=== PATIENT | male | born 1980 | race Caucasian/White ===

== ENCOUNTER 2016-11-19 22:52 | Emergency (ER) | payer MEDICAID ==
[2016-11-19] MEDS ORDERED: KETOROLAC 60 MG/2 ML VIAL IM STA (23:12)
--- NOTE | 2016-11-19 23:18 | Emergency Department Record ---
History of Present Illness - General Chief Complaint: Back Pain/Injury Stated Complaint: BACK,SIDE PAIN,VOMITING,DIARRHEA Time Seen by Provider: 11/19/16 23:04 Source: Patient Mode of Arrival: Ambulatory Limitations: No limitations - History of Present Illness Initial Comments: 35 yo male presents to ED with a CC of right sided chest/flank pain that began last night while at rest. Patient denies injury or trauma, denies difficultly breathing or pain with deep inspiration, and denies pain with trunk movement. Patient denies abdominal pain but does report one episode of vomiting JPTA. Patient denies previous history of DVT, calf pain, or PE. Patient denies health problems at his baseline. Patient reports similar symptoms in September, unknown cause. MD Complaint: Back pain Onset/Timin -: Days(s) Similar Symptoms Previously: Yes Place: Home Severity: Moderate Severity scale (1-10): 8 Consistency: Constant Improves With: None Worsens With: None Context: Unknown Associated Symptoms: Chest pain, Nausea/vomiting (x 1) Treatments Prior to Arrival: Acetaminophen Treatment Prior to Arrival Comment:: 2000mg - Related Data Previous Rx's Medication Instructions Recorded Naproxen [Naprosyn] 500 mg PO Q12H #20 tab. 11/20/16 Allergies Allergy/AdvReac Type Severity Reaction Status Date / Time No Known Drug Allergies Allergy Verified 09/28/16 03:00 Travel Screening - Travel/Exposure Within Last 30 Days Have you traveled within the last 30 days?: No - Travel/Exposure Within Last Year Have you traveled outside the [place] in the last year?: No - Additonal Travel Details Have you been exposed to anyone with a communicable illness?: No - Travel Symptoms Symptom Screening: None Review of Systems Constitutional: Denies: Chills, Fever, Malaise, Night sweats Eyes: Denies: Eye discharge, Eye pain ENT: Denies: Congestion Respiratory: Denies: Cough, Dyspnea Cardiovascular: Reports: Chest pain. Denies: Dyspnea on exertion, Palpitations , Paroxysmal nocturnal dyspnea Endocrine: Denies: Fatigue, Heat or cold intolerance Gastrointestinal: Reports: Vomiting (x 1). Denies: Abdominal pain Genitourinary: Denies: Hematuria, Incontinence, Retention Musculoskeletal: Reports: Back pain. Denies: Arthralgia, Gout, Joint swelling Skin: Reports: Rash (right lateral flank region). Denies: Bruising, Change in color, Change in hair/nails Neurological: Denies: Abnormal gait, Confusion, Headache, Seizure Psychiatric: Denies: Anxiety Hematological/Lymphatic: Denies: Anemia, Blood Clots Past Medical History - SOCIAL HISTORY Smoking Status: Current every day smoker Alcohol Use: None Drug Use: None - RESPIRATORY Hx Respiratory Disorders: No - CARDIOVASCULAR Hx Cardio Disorders: No - NEURO Hx Neuro Disorders: No - GI Hx GI Disorders: No - Hx Genitourinary Disorders: No - ENDOCRINE Hx Endocrine Disorders: No - MUSCULOSKELETAL Hx Musculoskeletal Disorders: No - PSYCH Hx Psych Problems: No Comment:: Pt staeas PTSD no meds. - HEMATOLOGY/ONCOLOGY Hx Hematology/Oncology Disorders: No Family Medical History Any Significant Family History?: No Physical Exam - General General Appearance: Alert, Oriented x3, Cooperative, No acute distress Limitations: No limitations - Head Head exam: Atraumatic, Normocephalic, Normal inspection Head exam detail: negative: Abrasion, Contusion, Irene's sign, General tenderness, Hematoma, Laceration - Eye Eye exam: Normal appearance. negative: Conjunctival injection, Periorbital swelling, Periorbital tenderness, Scleral icterus - ENT Ear exam: negative: Auricular hematoma, Auricular trauma Nasal Exam: negative: Active bleeding, Discharge, Dried blood, Foreign body Mouth exam: negative: Drooling, Laceration, Muffled voice, Tongue elevation - Neck Neck exam: Normal inspection. negative: Meningismus, Tenderness - Respiratory Respiratory exam: Normal lung sounds bilaterally. negative: Respiratory distress, Rhonchi, Stridor, Wheezes - Cardiovascular Cardiovascular Exam: Regular rate, Normal rhythm, Normal heart sounds - GI/Abdominal GI/Abdominal exam: Soft. negative: Distended, Pulsatile mass, Rebound, Rigid, Tenderness - Rectal Rectal exam: Deferred - exam: Deferred - Extremities Extremities exam: Normal inspection. negative: Calf tenderness, Pedal edema, Tenderness - Back Back exam: Reports: Normal inspection. Denies: CVA tenderness (R), CVA tenderness (L) - Neurological Neurological exam: Alert, Normal gait, Oriented X3 - Psychiatric Psychiatric exam: Normal affect, Normal mood - Skin Skin exam: Rash (right lateral flank, back). negative: Abrasion Type of lesion: Rash Distribution of rash: Thorax Description of rash: Erythematous, Macular Course Vital Signs 11/19/16 22:53 Temperature 97.8 F Pulse Rate 52 L Respiratory 16 Rate Blood Pressure 135/80 Pulse Ox 98 - Reevaluation(s) Reevaluation #1: 11/19/16 23:18 Patient seen and examined, pain over the lower right chest wall radiating around to his back. Rash noted on examination, reports this may be related to heating pad but is unsure, no vesicles are present on exam. ? Shingles vs. mild abrasion from heating pad. Patient is PERC negative on examination. Patient has no abdominal pain on examination, therefore cholecystitis does not appear likely. Symptoms do not appear cardiac in etiology and are similar to symptoms in September with a negative cardiac evaluation. Will obtain CXR, EKG, and UA to look for evidence of kidney stone as the etiology. Toradol given for pain symptoms. EKF: Sinus Bradycardia 42 Normal axis, normal intervals, No acute ST-T wave changes. EKG is unchanged from 09/28/16. 11/19/16 23:32 Reevaluation #2: 11/20/16 00:07 CXR: No acute process Patient reassessed following Toradol administration, reports that his pain symptoms are greatly improved. Awaiting UA to exclude blood (kidney stone). Reevaluation #3: 11/20/16 01:12 UA and UDS appear negative for blood or infection. Patient continues to report improvement in his pain symptoms. Rash does not appear to be consistent with shingles. Patient appears stable for discharge at this time with symptomatic treatment for his flank pain symptoms. Disposition Disposition: Discharge Clinical Impression: Chest wall pain Disposition: Home, Self-Care Condition: (2) Stable Instructions: Chest Wall Pain (ED) Additional Instructions: Return to ED if your symptoms worsen or if you have any concerns. Naprosyn as directed for your chest wall pain. Follow-up with your family doctor in 3-5 days as directed. Prescriptions: Naproxen [Naprosyn] 500 mg PO Q12H #20 tab.dr Forms: Patient Portal Access Time of Disposition: 01:15
[2016-11-20 01:05] LABS: URINE APPEARANCE CLEAR; URINE BILIRUBIN SMALL (NEGATIVE); URINE BLOOD NEGATIVE (NEGATIVE); URINE COLOR YELLOW; URINE GLUCOSE (UA) NEGATIVE (NEGATIVE); URINE KETONE 40 mg/dL (NEGATIVE); URINE LEUKOCYTE ESTERASE NEGATIVE (NEGATIVE); URINE NITRITE NEGATIVE (NEGATIVE); URINE PROTEIN TRACE (NEGATIVE); URINE UROBILINOGEN 0.2 E.U./dL (0.20 - 1.00)
[2016-11-20 01:10] LABS: AMPHETAMINE SCREEN URINE NOT DETECTED; BARBITURATE SCREEN URINE NOT DETECTED; BENZODIAZEPINE SCREEN URINE NOT DETECTED; COCAINE SCREEN URINE NOT DETECTED; METHADONE SCREEN URINE NOT DETECTED; METHAMPHETAMINE SCREEN NOT DETECTED; OPIATE SCREEN URINE NOT DETECTED; OXYCODONE SCREEN URINE NOT DETECTED; PHENCYCLIDINE SCREEN URINE NOT DETECTED; PROPOXYPHENE SCREEN URINE NOT DETECTED; THC SCREEN URINE NOT DETECTED; TRICYCLIC ANTIDEPRESSANT SCRN NOT DETECTED
--- NOTE | 2016-11-22 15:06 | RADIOLOGY REPORT ---
EXAM: CHEST, TWO VIEWS HISTORY: ACUTE GENERALIZED RIGHT CHEST PAIN. TECHNIQUE: Two views of the chest were obtained. Comparison: Chest x-ray 09/28/16. FINDINGS: The lungs are clear. The cardiomediastinal silhouette, diaphragm, and osseous structures are unremarkable for age. IMPRESSION: NEGATIVE CHEST EXAMINATION. JOB NUMBER: [id number] MTDD
== END 2016-11-20 01:24 | disposition home or self-care (01) ==
LOC: ER 22:52
DX: R07.89 Other chest pain (principal); R11.2 Nausea with vomiting, unspecified; R21 Rash and other nonspecific skin eruption; F17.210 Nicotine dependence, cigarettes, uncomplicated; Z79.899 Other long term (current) drug therapy
CPT/HCPCS: 99284 ×2; 96372; 81003; 71020; 93005; 93010; G0477; J1885

== ENCOUNTER 2016-11-24 22:17 | Emergency (ER) | payer MEDICAID ==
--- NOTE | 2016-11-24 22:36 | Emergency Department Record ---
History of Present Illness - General Chief complaint: Flank Pain Stated complaint: SIDE PAIN Time Seen by Provider: 11/24/16 22:29 Source: Patient Mode of Arrival: Ambulatory Limitations: No limitations - History of Present Illness Initial comments: 35 yo male returns to ED with a CC of right sided chest and back pain symptoms. Patient reports similar symptoms in September of last year, improved with symptomatic treatment following evaluation in the ED. Patient descibes his pain as an "ache", denies fevers, chills, cough, or recent illness. Patient history of PE/DVT. Onset/Timin -: Days(s) Location: Abdomen, Right flank Radiation: Chest Severity: Moderate Severity scale (1-10): 8 Quality: Other Consistency: Getting worse Improves with: None Worsens with: None Reports: Nausea/vomiting - Related Data Previous Rx's Medication Instructions Recorded Naproxen [Naprosyn] 500 mg PO Q12H #20 tab. 11/20/16 Allergies Allergy/AdvReac Type Severity Reaction Status Date / Time No Known Drug Allergies Allergy Verified 09/28/16 03:00 Travel Screening - Travel/Exposure Within Last 30 Days Have you traveled within the last 30 days?: No - Travel/Exposure Within Last Year Have you traveled outside the [place] in the last year?: No - Additonal Travel Details Have you been exposed to anyone with a communicable illness?: No - Travel Symptoms Symptom Screening: None Review of Systems Constitutional: Denies: Chills, Fever, Malaise, Night sweats Eyes: Denies: Eye discharge, Eye pain ENT: Denies: Congestion, Ear pain Respiratory: Denies: Cough, Dyspnea Cardiovascular: Reports: Chest pain. Denies: Dyspnea on exertion, Palpitations Endocrine: Denies: Fatigue, Heat or cold intolerance Gastrointestinal: Denies: Abdominal pain, Nausea, Vomiting Genitourinary: Denies: Hematuria, Incontinence, Retention Musculoskeletal: Reports: Back pain. Denies: Arthralgia, Gout, Joint swelling Skin: Denies: Bruising, Change in color Neurological: Denies: Abnormal gait, Confusion, Headache, Seizure Psychiatric: Denies: Anxiety Hematological/Lymphatic: Denies: Anemia, Blood Clots Past Medical History - SOCIAL HISTORY Smoking Status: Current every day smoker Alcohol Use: None Drug Use: None - RESPIRATORY Hx Respiratory Disorders: No - CARDIOVASCULAR Hx Cardio Disorders: No - NEURO Hx Neuro Disorders: No - GI Hx GI Disorders: No - Hx Genitourinary Disorders: No - ENDOCRINE Hx Endocrine Disorders: No - MUSCULOSKELETAL Hx Musculoskeletal Disorders: No - PSYCH Hx Psych Problems: No Comment:: Pt staeas PTSD no meds. - HEMATOLOGY/ONCOLOGY Hx Hematology/Oncology Disorders: No Family Medical History Any Significant Family History?: No Physical Exam - General General Appearance: Alert, Oriented x3, Cooperative, No acute distress Limitations: No limitations - Head Head exam: Atraumatic, Normocephalic, Normal inspection Head exam detail: negative: Abrasion, Contusion, Irene's sign, General tenderness, Hematoma, Laceration - Eye Eye exam: Normal appearance. negative: Conjunctival injection, Periorbital swelling, Periorbital tenderness, Scleral icterus - ENT Ear exam: negative: Auricular hematoma, Auricular trauma Nasal Exam: negative: Active bleeding, Discharge, Dried blood, Foreign body Mouth exam: negative: Drooling, Laceration, Tongue elevation - Neck Neck exam: Normal inspection. negative: Lymphadenopathy, Meningismus, Tenderness - Respiratory Respiratory exam: Normal lung sounds bilaterally. negative: Respiratory distress, Rhonchi, Stridor, Wheezes - Cardiovascular Cardiovascular Exam: Regular rate, Normal rhythm, Normal heart sounds - GI/Abdominal GI/Abdominal exam: Soft, Tenderness (mild TTP RUQ on examination, no rebound, guarding, or peritoneal signs are present.). negative: Rebound, Rigid - Rectal Rectal exam: Deferred - exam: Deferred - Extremities Extremities exam: Normal inspection. negative: Calf tenderness, Pedal edema, Tenderness - Back Back exam: Reports: Normal inspection. Denies: CVA tenderness (R), CVA tenderness (L), Paraspinal tenderness - Neurological Neurological exam: Alert, Normal gait, Oriented X3 - Psychiatric Psychiatric exam: Normal affect, Normal mood. negative: Anxious - Skin Skin exam: Normal color. negative: Abrasion Type of lesion: negative: abrasion Course Vital Signs 11/24/16 22:22 Temperature 98.7 F Pulse Rate [ 100 H Pulse Ox Probe] Respiratory 18 Rate Blood Pressure 122/81 [Left Arm] Pulse Ox 98 - Reevaluation(s) Reevaluation #1: 11/24/16 22:53 EKG: NSR 94 Normal axis, normal intervals No acute ST-T wave changes are present. Unchanged from 11/19/16. Reevaluation #2: 11/24/16 23:41 Labs reviewed, WBC 17.5, otherwise labs are grossly unremarkable for an acute process. Bedside US performed, there are gallstones present with GB wall thickening present. CT pending. Reevaluation #3: 11/24/16 23:57 CTA Chest: No PE, no acute chest pathology. Partial visualization of the gallbladder demonstrates fat stranding. Dr. Salcido paged for consultation. Reevaluation #4: 11/25/16 00:08 Case was discussed with Dr. Salcido, will transfer to [facility] for surgical evaluation. Invanz ordered to infuse prior to transfer. Medical Decision Making - Lab Data Result diagrams: 11/24/16 22:30 11/24/16 22:30 Disposition Disposition: Transfer Clinical Impression: Acute cholecystitis Disposition: Acute Care Hospital Transfer Transfer To: [facility] Reason For Transfer: Surgical consultation Accepting Physician: Loly Time Discussed w/Accepting Physician: 00:09 Condition: (2) Stable Forms: Patient Portal Access Time of Disposition: 00:09
[2016-11-24] MEDS: KETOROLAC 30 MG/ML VIAL IVP ONE (22:40)
[2016-11-24] MEDS: 0.9 % SODIUM CHLORIDE 1000ML 1,000 ML IV SCH (22:41)
[2016-11-24 23:03] LABS: BASO % 0.1 % (0-6); EOS % 2.3 % (0-6); HEMATOCRIT 47.6 % (42.0-52.0); LYMPH % 11.3 % (16-45); MEAN CELL VOLUME 85.9 fl (81-97); MEAN CORPUSCULAR HEMOGLOBIN 28.9 pg (27-33); MEAN CORPUSCULAR HGB CONC 33.6 g/dl (32-36); MEAN PLATELET VOLUME 10.2 fl (7.4-10.4); MONO % 8.3 % (0-9); PLATELET COUNT 225 K/uL (130-400); RED BLOOD COUNT 5.54 M/uL (4.40-5.70); RED CELL DISTRIBUTION WIDTH 13.4 % (11.5-14.5); WHITE BLOOD COUNT W/O DIFF 17.5 K/uL (4.2-12.2)
[2016-11-24 23:10] LABS: ALB/GLOB RATIO 1.5 (1.1-1.8); ALBUMIN 4.2 gm/dL (3.5-5.0); ALKALINE PHOSPHATASE 118 U/L (38-126); ALT/SGPT 58 U/L (21-72); ANION GAP 14.4 (7-16); AST/SGOT 36 U/L (17-59); BILIRUBIN,TOTAL 0.75 mg/dL (0.2-1.3); BLOOD UREA NITROGEN 11 mg/dL (9-20); CARBON DIOXIDE 23.6 mmol/L (22-30); CREATININE 1.2 mg/dL (0.66-1.25); EST GLOMERULAR FILTRATION RATE > 60 ml/min; GLUCOSE,RANDOM 108 mg/dL (70-110)
[2016-11-24 23:21] LABS: TROPONIN I < 0.012 ng/mL (0.00-0.034)
[2016-11-24 23:43] LABS: CKMB 0.2 ug/L (0-6)
[2016-11-25] MEDS: ERTAPENEM SODIUM 1 G in 0.9 % SODIUM CHLORIDE 100ML 100 ML IVPB ONE (00:51)
--- NOTE | 2016-11-29 14:13 | CT ANGIOGRAM REPORT ---
EXAM: CTA OF THE CHEST WITH CONTRAST HISTORY: RIGHT SIDED CHEST PAIN. TECHNIQUE: CTA of the chest was performed after intravenous administration of 82 ml of Omnipaque 350 contrast material. Sagittal and coronal MIP images were performed on an independent workstation. FINDINGS: No mass or filling defect to suggest pulmonary embolism. The heart and pericardium appears unremarkable. The thoracic aorta appears normal. No mediastinal or hilar lymph nodes are appreciated. The lung sandoval are clear. There is bilateral lower lobe infiltrate versus atelectasis. The visualized upper abdominal structures demonstrate gallbladder wall thickening with probable pericholecystic fluid. Acute cholecystitis cannot be entirely excluded. IMPRESSION: 1. DEPENDENT ATELECTASIS VERSUS INFILTRATE IN BOTH LUNG BASES. 2. NO EVIDENCE OF PULMONARY EMBOLISM. 3. GALLBLADDER WALL THICKENING WITH PROBABLE PERICHOLECYSTIC FLUID. ACUTE CHOLECYSTITIS CANNOT BE ENTIRELY EXCLUDED. JOB NUMBER: [id number] MTDD
== END 2016-11-25 01:30 | disposition short-term general hospital (02) ==
LOC: ER 22:17
DX: K81.0 Acute cholecystitis (principal); R11.2 Nausea with vomiting, unspecified; R07.9 Chest pain, unspecified
CPT/HCPCS: 99285 ×2; 96365; 96375; 96361; 82550; 85025; 82553; 84484; 80053; 71275; 93005; 93010; Q9967; J1335; J1885; J7030

== ENCOUNTER 2017-11-30 14:31 | Emergency (ER) | payer BC ==
--- NOTE | 2017-11-30 15:58 | Emergency Department Record ---
History of Present Illness - General Chief complaint: Flu Like Symptoms Stated complaint: FLY-LIKE SYMPTOMS Time Seen by Provider: 11/30/17 15:52 Source: Patient, RN notes reviewed Mode of Arrival: Ambulatory - History of Present Illness Initial comments: last time vomiting last night and he is drinking water slowly and he started with a cough and bodyaches and sorethroat. this started 3 days ago. Onset/Timin -: Days(s) Associated Symptoms: Fever/chills, Loss of appetite, Nausea/vomiting, Other - [place] Coma Scale Eye Response: (4) Open spontaneously Motor Response: (6) Obeys commands Verbal Response: (5) Oriented [place] Total: 15 - Related Data Previous Rx's Medication Instructions Recorded Ondansetron HCl [Zofran] 4 mg PO Q6HR #6 tablet 11/30/17 Allergies Allergy/AdvReac Type Severity Reaction Status Date / Time No Known Drug Allergies Allergy Unverified 07/23/17 16:45 Travel Screening - Travel/Exposure Within Last 30 Days Have you traveled within the last 30 days?: No - Travel/Exposure Within Last Year Have you traveled outside the [place] in the last year?: No - Additonal Travel Details Have you been exposed to anyone with a communicable illness?: Yes Exposure Details:: [facility] [employer] - Travel Symptoms Symptom Screening: Headache, Joint & Muscle Aches, Diarrhea, Chills Review of Systems Reviewed: No additional complaints except as noted below Constitutional: Reports: As per HPI. Denies: Chills, Fever, Malaise, Night sweats, Weakness, Weight change Eyes: Reports: As per HPI. Denies: Eye discharge, Eye pain, Photophobia, Vision change ENT: Reports: As per HPI. Denies: Congestion, Dental pain, Ear pain, Epistaxis , Hearing loss, Throat pain Respiratory: Reports: As per HPI. Denies: Cough, Dyspnea, Hemoptysis, Stridor, Wheezes Cardiovascular: Reports: As per HPI. Denies: Arrhythmia, Chest pain, Dyspnea on exertion, Edema, Murmurs, Orthopnea, Palpitations, Paroxysmal nocturnal dyspnea, Rheumatic Fever, Syncope Endocrine: Reports: As per HPI. Denies: Fatigue, Heat or cold intolerance, Polydipsia, Polyuria Gastrointestinal: Reports: As per HPI. Denies: Abdominal pain, Constipation, Diarrhea, Hematemesis, Hematochezia, Melena, Nausea, Vomiting Genitourinary: Reports: As per HPI. Denies: Dysuria, Frequency, Hematuria, Incontinence, Retention, Testicular pain, Testicular mass, Urgency Musculoskeletal: Reports: As per HPI. Denies: Arthralgia, Back pain, Gout, Joint swelling, Myalgia, Neck pain Skin: Reports: As per HPI. Denies: Bruising, Change in color, Change in hair/ nails, Lesions, Pruritus, Rash Neurological: Reports: As per HPI. Denies: Abnormal gait, Confusion, Headache, Numbness, Paresthesias, Seizure, Tingling, Tremors, Vertigo, Weakness Psychiatric: Reports: As per HPI. Denies: Anxiety, Auditory hallucinations, Depression, Homicidal thoughts, Suicidal thoughts, Visual hallucinations Hematological/Lymphatic: Reports: As per HPI. Denies: Anemia, Blood Clots, Easy bleeding, Easy bruising, Swollen glands Past Medical History - SOCIAL HISTORY Smoking Status: Current every day smoker Alcohol Use: Rare Drug Use: None - RESPIRATORY Hx Respiratory Disorders: No - CARDIOVASCULAR Hx Cardio Disorders: No - NEURO Hx Neuro Disorders: No - GI Hx GI Disorders: No - Hx Genitourinary Disorders: No - ENDOCRINE Hx Endocrine Disorders: No - MUSCULOSKELETAL Hx Musculoskeletal Disorders: No - PSYCH Hx Psych Problems: No Comment:: Pt staeas PTSD no meds. - HEMATOLOGY/ONCOLOGY Hx Hematology/Oncology Disorders: No Family Medical History Any Significant Family History?: No Physical Exam - General General Appearance: Alert, Oriented x3, Cooperative, No acute distress - Head Head exam: Normal inspection - Eye Eye exam: Normal appearance, PERRL Pupils: Normal accommodation - ENT ENT exam: Normal exam, Mucous membranes moist, Normal external ear exam, Normal orophraynx, TM's normal bilaterally Ear exam: Normal external inspection. negative: External canal tenderness Nasal Exam: Normal inspection. negative: Discharge, Sinus tenderness Mouth exam: Normal external inspection, Tongue normal Teeth exam: Normal inspection. negative: Dental caries Throat exam: Normal inspection. negative: Tonsillar erythema, Tonsillar exudate - Neck Neck exam: Normal inspection, Full ROM. negative: Tenderness - Respiratory Respiratory exam: Normal lung sounds bilaterally. negative: Respiratory distress - Cardiovascular Cardiovascular Exam: Regular rate, Normal rhythm, Normal heart sounds - GI/Abdominal GI/Abdominal exam: Soft, Normal bowel sounds. negative: Tenderness - Rectal Rectal exam: Deferred - exam: Deferred - Extremities Extremities exam: Normal inspection, Full ROM, Normal capillary refill. negative: Tenderness - Back Back exam: Reports: Normal inspection, Full ROM. Denies: Muscle spasm, Rash noted, Tenderness - Neurological Neurological exam: Alert, Normal gait, Oriented X3, Reflexes normal - Psychiatric Psychiatric exam: Normal affect, Normal mood - Skin Skin exam: Dry, Intact, Normal color, Warm Course Vital Signs 11/30/17 14:55 Temperature 98.9 F Pulse Rate [ 78 Pulse Ox Probe] Respiratory 16 Rate Blood Pressure 128/92 [Left Arm] Pulse Ox 98 coughing makes him gag - Reevaluation(s) Reevaluation #1: 3 days of flu and community is out of tamiflu 11/30/17 16:04 Disposition Clinical Impression: Influenza Disposition: Home, Self-Care Condition: (2) Stable Instructions: Influenza (ED) Additional Instructions: follow up with family in 5 days return if SOB and weaker tylenol or motrin robitussin DM every 4 hours cough syrup. Prescriptions: Ondansetron HCl [Zofran] 4 mg PO Q6HR #6 tablet Forms: Patient Portal Access Time of Disposition: 16:02 Quality - Quality Measures Quality Measures: N/A - Blood Pressure Screening Does Patient Have Any of the Following: No Blood Pressure Classification: Hypertensive Reading Systolic Measurement: 128 Diastolic Measurement: 92 Screening for High Blood Pressure: < Pre-Hypertensive BP, F/U Documented > [ [id number]] Pre-Hypertensive Follow-up Interventions: Referral to alternative/primary care provider.
[2017-11-30] MEDS ORDERED: ACETAMINOPHEN 500 MG TABLET PO ONE (16:17)
== END 2017-11-30 16:23 | disposition home or self-care (01) ==
LOC: ER 14:31
DX: J10.1 Influenza due to other identified influenza virus with other respiratory manifestations (principal); F17.210 Nicotine dependence, cigarettes, uncomplicated
CPT/HCPCS: 99282